=== PATIENT | female | born 1955 ===

== ENCOUNTER 2018-08-18 06:22 | Day surgery (SDC) | payer OTHER ==
[2018-08-18] MEDS ORDERED: TRAMADOL HCL50 MG PO (09:33)
[2018-08-18] MEDS ORDERED: TYLENOL EXTRA500 MG PO (09:33)
[2018-08-18] MEDS ORDERED: MIRALAX17 GM PO (09:33)
[2018-08-18] MEDS ORDERED: ZOFRAN ODT4 MG PO (09:33)
== END 2018-08-18 12:50 | disposition home or self-care (01) ==
LOC: CIR.AMB 06:22 → AMB-ENDOS 11:00 → CIR.AMB 12:45
DX: K80.10 Calculus of gallbladder with chronic cholecystitis without obstruction (principal)